=== PATIENT | male | born 1985 | race Caucasian/White ===

== ENCOUNTER 2018-11-06 13:40 | Emergency (ER) | payer OTHER ==
[2018-11-06] MEDS ORDERED: KETOROLAC TROMETHAMINE 60 MG/2 ML SDV IM ONE (14:52)
[2018-11-06] MEDS ORDERED: OXYCODONE-ACETAMINOPHEN 5-325 MG TABLET PO ONE (14:52)
--- NOTE | 2018-11-06 14:58 | ER Document Report ---
ED Neck/Back Problem - General Chief Complaint: Back Pain Stated Complaint: LOW BACK PAIN, RIGHT LEG PAIN Time Seen by Provider: 11/06/18 14:37 Notes: 33-year-old male to the emergency department chief complaint of low back pain radiating down into his buttocks on the right and right lateral leg. States that he noticed the pain earlier today after standing. Was having so much pain that he could not complete work today. Has had chronic back pain. Followed by [facility]. 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 Causes chronic pain. States that he has had multiple narcotics. Nothing seems to make it better or worse. Pain began suddenly today. No trauma. No abnormal movements. Rated as 5/500 numeric pain scale. Radiates down the right leg and into the right buttock area. Denies any fever or chills. No loss of bowel function. No urinary retention. Denies any numbness in the crotch area. Is able to move his leg. Is able to feel his lower extremity. TRAVEL OUTSIDE OF THE [place] 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 Past Surgical History: Reports: Hx Appendectomy Review of Systems - Review of Systems Notes: Constitutional: denies: Chills, Diaphoresis, Fever, Malaise, Weakness EENT: denies: Eye discharge, Blurred vision, Tearing, Double vision, Nose congestion, Nose discharge, Throat swelling, Mouth pain Cardiovascular: denies: Palpitations, Heart racing, Orthopnea, Dyspnea, Chest pain Respiratory: denies: Cough, Hurts to breathe, Wheezing, Shortness of breath Gastrointestinal: denies: Abdominal pain, Diarrhea, Nausea, Vomiting, Black stools, bright red blood in stool Genitourinary: denies: Burning, Dysuria, Discharge, Frequency, Flank pain, Hematuria Musculoskeletal: denies: Joint pain, Joint swelling, Muscle pain, Muscle stiffness,. Complaining of low back pain radiating to the right buttock area and down the right leg. Hematologic/Lymphatic: denies: Anemia, Easy bleeding, Easy bruising, Blood clots Neurological/Psychological: denies: Confusion, Dementia, Depression, Loss of consciousness. No numbness. No loss of sensation or function of the lower extremities. No numbness in the crotch area. No numbness around the rectum reported. Skin: No lesions, no masses, no skin breakdown, no abscesses Physical Exam - Vital signs Vitals: Temp Pulse Resp BP Pulse Ox 97.8 F 95 14 144/99 H 99 11/06/18 13:46 11/06/18 13:46 11/06/18 13:46 11/06/18 13:46 11/06/18 13:46 Interpretation: Normal - General General appearance: Appears well, Alert - HEENT Head: Normocephalic, Atraumatic Eyes: Normal Pupils: PERRL - Respiratory Respiratory status: No respiratory distress Chest status: Nontender Breath sounds: Normal Chest palpation: Normal - Cardiovascular Rhythm: Regular Heart sounds: Normal auscultation Murmur: No - Abdominal Inspection: Normal Distension: No distension Bowel sounds: Normal Tenderness: Nontender Organomegaly: No organomegaly - Back Back: Normal, Tender - Mild tenderness to paraspinal muscles in the right buttock area and piriformis area with tenderness to palpation down the right leg. No step-offs. No abnormal skin temperatures., Other - Negative straight leg raise bilaterally. - Extremities General upper extremity: Normal inspection, Nontender, Normal color, Normal ROM , Normal temperature General lower extremity: Normal inspection, Nontender, Normal color, Normal ROM , Normal temperature, Other - Patient is able to stand on both legs but does have some difficulty moving quickly. Using a cane.. No: Chato's sign - Neurological Neuro grossly intact: Yes Cognition: Normal Orientation: AAOx4 Luis Coma Scale Eye Opening: Spontaneous Luis Coma Scale Verbal: Oriented Luis Coma Scale Motor: Obeys Commands Luis Coma Scale Total: 15 Speech: Normal Motor strength normal: LUE, RUE, LLE, RLE Sensory: Normal - Psychological Associated symptoms: Normal affect, Normal mood - Skin Skin Temperature: Warm Skin Moisture: Dry Skin Color: Normal Course - Re-evaluation Re-evalutation: 11/06/18 15:15 At this time patient has no loss of bowel or bladder function. He has no fever. He has no significant paresthesias or numbness. He has tenderness to palpation that is reproducible in the paraspinal muscles of the lumbar spine. He has tenderness to palpation of the piriformis and gluteal muscles on the right as well as the vastus lateralis on the right. More likely this represents acute sciatica. I have explained to him that doing advanced imaging at this time is not warranted as we need to treat this conservatively as most back pains will resolve. Patient has access to primary care doctors. I have advised him to follow-up with his regular doctors at this time. We have given him a shot of Toradol and some Percocet here. Will discharge on anti- inflammatory and muscle relaxant and advised him to use ice packs. I have given him a list of no red flag warning signs at discharge. Patient is to return for any of the symptoms. 11/06/18 15:59 An additional dose of fentanyl and Zofran was given. I have explained to the patient that I do not have anything else to offer him at this time. Will DC after these medications are given. - Vital Signs Vital signs: Temp Pulse Resp BP Pulse Ox 97.8 F 95 14 144/99 H 99 11/06/18 13:46 11/06/18 13:46 11/06/18 13:46 11/06/18 13:46 11/06/18 13:46 Discharge - Discharge Clinical Impression: Low back pain with sciatica Qualifiers: Chronicity: acute Back pain laterality: right Sciatica laterality: sciatica of right side Qualified Code(s): M54.41 - Lumbago with sciatica, right side Condition: Good Disposition: HOME, SELF-CARE Instructions: Ice Packs ([facility]), Low Back Pain ([facility]), Sciatica ([facility]) Additional Instructions: In the event that you have fever, loss of bowel function (defecate without wanting to), inability to urinate, progressive neurological dysfunction or significant numbness and weakness of the lower extremities or for any other concerns please return. Please follow-up with your regular doctor as this will likely need further workup done as an outpatient. Do not mix muscle relaxants with alcohol or other strong pain medication. Prescriptions: Diazepam [Valium 5 mg Tablet] 5 mg PO BID PRN 7 Days #14 tablet PRN Reason: Muscle Spasms Meloxicam [Mobic] 15 mg PO DAILY 14 Days #14 tablet Forms: Return to Work Referrals: TIMOTHY PABON NP [Primary Care Provider] - Follow up as needed
[2018-11-06] MEDS ORDERED: FENTANYL CITRATE INJ/PF 100 MCG/2 ML AMPUL IM ONE (15:58)
[2018-11-06] MEDS ORDERED: ONDANSETRON 4 MG TAB.RAPDIS PO ONE (15:58)
[2018-11-06 16:35] VITALS: BP 137/92
== END 2018-11-06 16:39 | disposition home or self-care (01) ==
LOC: ER 13:40
DX: M54.41 Lumbago with sciatica, right side (principal); G89.29 Other chronic pain
CPT/HCPCS: 99283; 96372; J1885; S0119; J3010